=== PATIENT | male | born 2005 | race Caucasian/White ===

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

== ENCOUNTER 2024-08-07 18:21 | Emergency (ER) | payer OTHER, SELFPAY ==
[2024-08-07] MEDS ORDERED: Ondansetron ODT 4 MG TAB ONE (19:06)
== END 2024-08-07 19:20 | disposition home or self-care (01) ==
LOC: NAV ERS 18:21
DX: J02.9 Acute pharyngitis, unspecified (principal); R05.9 Cough, unspecified; R09.81 Nasal congestion; F17.200 Nicotine dependence, unspecified, uncomplicated
CPT/HCPCS: 99283; Q0162